=== PATIENT | male | born 1995 | race Hispanic/Latino ===

== ENCOUNTER 2020-08-19 15:54 | Inpatient (IN) | payer MEDICARE ==
[2020-08-19] MEDS: CEFTRIAXONE 1G VIAL IVP SCH
[2020-08-19] MEDS ORDERED: 0.9%NACL 1000ML 1,000 ML IV ONE (16:40)
[2020-08-19] MEDS ORDERED: ACETAMINOPHEN 325 MG TAB ONE (16:40)
[2020-08-19 16:51] LABS: BASOPHILS % (AUTO) 0.1 % (0.0-5.0); HEMATOCRIT 47.2 % (42-54); LYMPHOCYTES % (AUTO) 16.8 % (21.0-51.0); MEAN CORPUSCULAR HEMOGLOBIN 28.5 pg (27.0-33.0); MEAN CORPUSCULAR HGB CONC 33.5 g/dL (32.0-36.0); MONOCYTES % (AUTO) 7.2 % (3.0-13.0); NEUTROPHILS % (AUTO) 75.4 % (40.0-77.0); PLATELET COUNT (AUTO) 189 K/uL (130-400); RED BLOOD CELL COUNT(AUTO) 5.55 MIL/uL (4.50-6.20); RED CELL DISTRIBUTION WIDTH 11.9 % (11.0-15.5); WHITE BLOOD COUNT (AUTO) 7.8 K/uL (4.8-10.8)
[2020-08-19 16:52] LABS: APPEARANCE,URINE Clear (CLEAR); BILIRUBIN,URINE Negative (NEGATIVE); COLOR,URINE Yellow (YELLOW); GLUCOSE, URINE (UA) >=1000 mg/dL (NEGATIVE); KETONES,URINE >=160 mg/dL (NEGATIVE); LEUKOCYTE ESTERASE ,URINE Negative (NEGATIVE); NITRATE,URINE Negative (NEGATIVE); OCCULT BLOOD,URINE Small (NEGATIVE); PH,URINE 5.5 (5.0-8.0); PROTEIN,URINE POS 2+ mg/dL (NEGATIVE)
[2020-08-19 17:01] LABS: BACTERIA,URINE Rare /HPF (None Seen); CREATININE 1.7 mg/dL (0.5-1.5); POTASSIUM 4.3 mmol/L (3.5-5.1); RBC,URINE 0-1 /HPF (0-1); WBC,URINE 0-1 /HPF (0-1)
[2020-08-19 17:02] LABS: SQUAMOUS EPITHELIAL CELL,UR Rare /HPF (0-2)
[2020-08-19] MEDS ORDERED: ONDANSETRON 4MG INJ ONE ×2 (17:05→20:11)
[2020-08-19 17:06] LABS: ALBUMIN 3.7 g/dL (3.5-5.0); BILIRUBIN,TOTAL 0.6 mg/dL (0.2-1.0); TOTAL PROTEIN, SERUM 9.4 g/dL (6.0-8.3)
[2020-08-19 19:13] LABS: ABG BASE EXCESS -20.7 mmol/L (-2.0-3.0); ABG HCO3 5.9 mmol/L (21.0-28.0); ABG OXYGEN SATURATION 93.7 % (95.0-99.0); ABG PCO2 17 mmHg (35-48)
[2020-08-19] MEDS ORDERED: CEFTRIAXONE 1G VIAL ONE (20:04)
[2020-08-19] MEDS: ALOGRITHM #1 100 UNIT INSULIN/NS 100ML IV SCH ×2 (23:35)
[2020-08-20] VITALS (23 sets, daily range): BP systolic 99–133; BP diastolic 39–77
[2020-08-20] MEDS ORDERED: DEXTROSE 5%-WATER 1,000 ML IV ONE (03:10)
[2020-08-20] MEDS: ONDANSETRON 4MG INJ IVP PRN ×2 (05:38→16:35)
[2020-08-20 05:52] LABS: BASOPHILS % (AUTO) 0.2 % (0.0-5.0); EOSINOPHILS % (AUTO) 1.8 % (0.0-8.0); LYMPHOCYTES % (AUTO) 14.1 % (21.0-51.0); MEAN CORPUSCULAR HEMOGLOBIN 28.8 pg (27.0-33.0); MEAN CORPUSCULAR HGB CONC 33.4 g/dL (32.0-36.0); MEAN CORPUSCULAR VOLUME 86.1 fL (79-99); MONOCYTES % (AUTO) 6.6 % (3.0-13.0); NEUTROPHILS % (AUTO) 76.8 % (40.0-77.0); PLATELET COUNT (AUTO) 161 K/uL (130-400); RED BLOOD CELL COUNT(AUTO) 5.11 MIL/uL (4.50-6.20); RED CELL DISTRIBUTION WIDTH 12.2 % (11.0-15.5); WHITE BLOOD COUNT (AUTO) 6.5 K/uL (4.8-10.8)
[2020-08-20 06:12] LABS: CREATININE 1.4 mg/dL (0.5-1.5); POTASSIUM 3.7 mmol/L (3.5-5.1)
[2020-08-20] MEDS ORDERED: DEXTROSE 5 %-0.45 % NACL 1,000 ML IV PRN (08:15)
[2020-08-20] MEDS ORDERED: 0.9%NACL 1000ML 1,000 ML IV SCH ×2 (08:15→10:00)
[2020-08-20] MEDS: AZITHROMYCIN 500MG+NS 250ML 250 ML IV SCH (09:00)
[2020-08-20] MEDS ORDERED: 0.9%NACL 1000ML 1,000 ML IV ONE (09:09)
[2020-08-20 09:16] LABS: CREATININE 1.5 mg/dL (0.5-1.5)
[2020-08-20 11:03] LABS: PHOSPHORUS 1.4 mg/dL (2.5-4.9)
[2020-08-20 11:04] LABS: HEMOGLOBIN A1C 11.1 % (4.0-6.0)
[2020-08-20 14:02] LABS: CREATININE 1.5 mg/dL (0.5-1.5); POTASSIUM 3.5 mmol/L (3.5-5.1)
[2020-08-20] MEDS: DEXTROSE 5%-WATER 1,000 ML IV PRN ×2 (15:00→21:13)
[2020-08-20] MEDS: POTASSIUM PHOS 15 mMOL+NS250ML 250 ML IV PRN (16:37)
[2020-08-20 18:23] LABS: CREATININE 1.9 mg/dL (0.5-1.5); POTASSIUM 3.4 mmol/L (3.5-5.1)
[2020-08-20] MEDS: CEFTRIAXONE 1G VIAL IVP SCH (21:12)
[2020-08-20 22:15] LABS: CREATININE 1.4 mg/dL (0.5-1.5); POTASSIUM 3.1 mmol/L (3.5-5.1)
[2020-08-21] MEDS: POTASSIUM CHLORIDE 10MEQ/100ML 100 ML IV PRN ×2 (01:13→02:34)
[2020-08-21 06:17] LABS: HEMATOCRIT 35.7 % (42-54); LYMPHOCYTES % (AUTO) 14.5 % (21.0-51.0); MEAN CORPUSCULAR HEMOGLOBIN 28.2 pg (27.0-33.0); MEAN CORPUSCULAR HGB CONC 34.2 g/dL (32.0-36.0); MEAN CORPUSCULAR VOLUME 82.6 fL (79-99); MONOCYTES % (AUTO) 5.2 % (3.0-13.0); PLATELET COUNT (AUTO) 152 K/uL (130-400); RED BLOOD CELL COUNT(AUTO) 4.32 MIL/uL (4.50-6.20)
[2020-08-21 06:27] LABS: CREATININE 1.2 mg/dL (0.5-1.5); MAGNESIUM 1.9 mg/dL (1.80-2.40); PHOSPHORUS 1.2 mg/dL (2.5-4.9); POTASSIUM 3.2 mmol/L (3.5-5.1)
[2020-08-21 08:32] VITALS: BP 99/46
[2020-08-21] MEDS: AZITHROMYCIN 500MG+NS 250ML 250 ML IV SCH (08:44)
[2020-08-21 10:21] LABS: CREATININE 1.3 mg/dL (0.5-1.5)
[2020-08-21 10:24] LABS: POTASSIUM 2.8 mmol/L (3.5-5.1)
[2020-08-21] MEDS: POTASSIUM PHOS 15 mMOL+NS250ML 250 ML IV PRN (10:35)
[2020-08-21] MEDS: ALOGRITHM #1 100 UNIT INSULIN/NS 100ML IV SCH ×2 (11:21)
[2020-08-21] MEDS ORDERED: D5 NS WITH 20 mEq KCl 1000ML IV SCH (14:00)
[2020-08-21] MEDS ORDERED: D5W-1/2 NS/20MEQ KCL 1,000 ML IV SCH (14:30)
[2020-08-21] MEDS ORDERED: COMPOUND IV REFRIGERATED 1 EACH IVSOLN MISC PRN (14:45)
[2020-08-21] MEDS: DEXTROSE IV SCH ×2 (15:27→23:00)
[2020-08-21] MEDS: POTASSIUM CHLORIDE IV SCH ×2 (15:27→23:00)
[2020-08-21] MEDS: NACL IV SCH ×2 (15:27→23:00)
[2020-08-21 16:47] VITALS: BP 106/51
[2020-08-21] MEDS: CEFTRIAXONE 1G VIAL IVP SCH (18:02)
[2020-08-21 19:28] VITALS: BP 91/53
[2020-08-22 02:00] VITALS: BP 106/66
[2020-08-22 02:02] VITALS: BP 108/62
[2020-08-22 05:39] LABS: BASOPHILS % (AUTO) 0.2 % (0.0-5.0); EOSINOPHILS % (AUTO) 0.2 % (0.0-8.0); HEMATOCRIT 34.3 % (42-54); LYMPHOCYTES % (AUTO) 21.6 % (21.0-51.0); MEAN CORPUSCULAR HEMOGLOBIN 28.5 pg (27.0-33.0); MEAN CORPUSCULAR VOLUME 81.5 fL (79-99); MONOCYTES % (AUTO) 5.7 % (3.0-13.0); NEUTROPHILS % (AUTO) 71.5 % (40.0-77.0); PLATELET COUNT (AUTO) 159 K/uL (130-400); RED BLOOD CELL COUNT(AUTO) 4.21 MIL/uL (4.50-6.20); RED CELL DISTRIBUTION WIDTH 11.9 % (11.0-15.5); WHITE BLOOD COUNT (AUTO) 5.1 K/uL (4.8-10.8)
[2020-08-22 05:42] LABS: CREATININE 1.1 mg/dL (0.5-1.5)
[2020-08-22] MEDS: DEXTROSE IV SCH (06:13)
[2020-08-22] MEDS: POTASSIUM CHLORIDE IV SCH (06:13)
[2020-08-22] MEDS: NACL IV SCH (06:13)
[2020-08-22 06:14] LABS: POTASSIUM 2.9 mmol/L (3.5-5.1)
[2020-08-22] MEDS: AZITHROMYCIN 500MG+NS 250ML 250 ML IV SCH (09:14)
[2020-08-22 09:32] VITALS: BP 108/58
[2020-08-22 12:20] VITALS: BP 96/52
[2020-08-22] MEDS: ENOXAPARIN SODIUM 40 MG/0.4 ML SYRINGE SQ SCH (12:58)
[2020-08-22] MEDS ORDERED: PANTOPRAZOLE 40 MG TAB DR PO SCH (13:45)
[2020-08-22] MEDS ORDERED: SODIUM BICARBONATE 650 MG TAB PO SCH (13:45)
[2020-08-22] MEDS ORDERED: POTASSIUM CHLORIDE 20 MEQ/100 ML BAG IV SCH (14:00)
[2020-08-22] MEDS: POTASSIUM CHLORIDE 20MEQ/100ML 100 ML IV SCH ×2 (14:11→15:54)
[2020-08-22] MEDS: SODIUM BICARBONATE 650 MG TAB PO SCH ×2 (14:11→21:53)
[2020-08-22] MEDS: 1/2NS+20MEQ KCL/1000ML 1,000 ML IV SCH (17:00)
[2020-08-22] MEDS: INSULIN HUMULIN R 100 UNIT/ML 3ML SQ SCH ×2 (17:00→21:48)
[2020-08-22] MEDS: CEFTRIAXONE 1G VIAL IVP SCH (18:10)
[2020-08-22] MEDS: INSULIN GLARGINE 100 UNITS/ML 10 ML VIAL SQ SCH (21:49)
[2020-08-22 22:00] VITALS: BP 105/69
[2020-08-23] MEDS: 1/2NS+20MEQ KCL/1000ML 1,000 ML IV SCH ×2 (01:20→14:40)
[2020-08-23 04:26] LABS: MEAN CORPUSCULAR HEMOGLOBIN 28.2 pg (27.0-33.0); MEAN CORPUSCULAR HGB CONC 34.9 g/dL (32.0-36.0); MEAN CORPUSCULAR VOLUME 80.8 fL (79-99); PLATELET COUNT (AUTO) 199 K/uL (130-400); RED BLOOD CELL COUNT(AUTO) 4.33 MIL/uL (4.50-6.20); RED CELL DISTRIBUTION WIDTH 11.8 % (11.0-15.5); WHITE BLOOD COUNT (AUTO) 5.2 K/uL (4.8-10.8)
[2020-08-23 04:31] LABS: CREATININE 1.2 mg/dL (0.5-1.5); PHOSPHORUS 2.5 mg/dL (2.5-4.9)
[2020-08-23 04:35] LABS: POTASSIUM 2.9 mmol/L (3.5-5.1)
[2020-08-23 04:47] LABS: BAND NEUTROPHILS % (MANUAL) 4 % (0-2); LYMPHOCYTES % (MANUAL) 26 % (22-44); MAN.DIFF COMMENT-IMPRESSION MANUAL DIFFERENTIAL; MONOCYTES % (MANUAL) 5 % (2-9); SEGMENTED NEUTROPHILS % 65 % (40-70)
[2020-08-23 04:48] LABS: PLATELET MORPHOLOGY COMMENT SLIGHTLY DECREASED
[2020-08-23] MEDS ORDERED: POTASSIUM BICARB/CIT AC 25 MEQ TABLET.EFF PO SCH ×2 (05:00→07:00)
[2020-08-23] MEDS ORDERED: KCL 20 MEQ ERTAB PO SCH ×2 (05:15→06:50)
[2020-08-23] MEDS ORDERED: KCL 20 MEQ ERTAB PO ONE (05:31)
[2020-08-23 05:52] VITALS: BP 101/60
[2020-08-23] MEDS: INSULIN HUMULIN R 100 UNIT/ML 3ML SQ SCH ×4 (06:55→21:00)
[2020-08-23] MEDS: INSULIN GLARGINE 100 UNITS/ML 10 ML VIAL SQ SCH ×2 (06:56→21:48)
[2020-08-23 08:00] VITALS: BP 112/58
[2020-08-23] MEDS: PANTOPRAZOLE 40 MG TAB DR PO SCH (08:46)
[2020-08-23] MEDS: ENOXAPARIN SODIUM 40 MG/0.4 ML SYRINGE SQ SCH ×2 (08:46→12:00)
[2020-08-23] MEDS: SODIUM BICARBONATE 650 MG TAB PO SCH ×2 (08:46→21:46)
[2020-08-23] MEDS: AZITHROMYCIN 500MG+NS 250ML 250 ML IV SCH (08:46)
[2020-08-23 12:15] VITALS: BP 117/82
[2020-08-23] MEDS: CEFTRIAXONE 1G VIAL IVP SCH (19:00)
[2020-08-23 21:32] VITALS: BP 106/66
[2020-08-24 03:12] LABS: AMPHET/METH SCREEN,URINE NEGATIVE (NEGATIVE); BARBITURATE SCREEN, URINE NEGATIVE (NEGATIVE); BENZODIAZEPINES SCREEN,URINE NEGATIVE (NEGATIVE); CANNABINOID SCREEN,URINE NEGATIVE (NEGATIVE); COCAINE SCREEN,URINE NEGATIVE (NEGATIVE); OPIATE SCREEN,URINE NEGATIVE (NEGATIVE); PHENCYCLIDINE SCREEN,URINE NEGATIVE (NEGATIVE)
[2020-08-24] MEDS: 1/2NS+20MEQ KCL/1000ML 1,000 ML IV SCH (03:57)
[2020-08-24 04:07] LABS: HEMATOCRIT 33.9 % (42-54); MEAN CORPUSCULAR HEMOGLOBIN 28.6 pg (27.0-33.0); MEAN CORPUSCULAR HGB CONC 35.4 g/dL (32.0-36.0); MEAN CORPUSCULAR VOLUME 80.9 fL (79-99); PLATELET COUNT (AUTO) 254 K/uL (130-400); RED BLOOD CELL COUNT(AUTO) 4.19 MIL/uL (4.50-6.20); RED CELL DISTRIBUTION WIDTH 11.8 % (11.0-15.5); WHITE BLOOD COUNT (AUTO) 5.2 K/uL (4.8-10.8)
[2020-08-24 05:03] LABS: POTASSIUM 2.7 mmol/L (3.5-5.1)
[2020-08-24 05:04] LABS: BAND NEUTROPHILS % (MANUAL) 5 % (0-2); EOSINOPHILS % (MANUAL) 2 % (1-6); LYMPHOCYTES % (MANUAL) 28 % (22-44); MAN.DIFF COMMENT-IMPRESSION MANUAL DIFFERENTIAL; MONOCYTES % (MANUAL) 5 % (2-9); PLATELET MORPHOLOGY COMMENT ADEQUATE; SEGMENTED NEUTROPHILS % 60 % (40-70)
[2020-08-24] MEDS: INSULIN HUMULIN R 100 UNIT/ML 3ML SQ SCH ×4 (07:00→21:21)
[2020-08-24] MEDS: INSULIN GLARGINE 100 UNITS/ML 10 ML VIAL SQ SCH ×2 (07:15→21:20)
[2020-08-24] MEDS: AZITHROMYCIN 500MG+NS 250ML 250 ML IV SCH (08:28)
[2020-08-24] MEDS: SODIUM BICARBONATE 650 MG TAB PO SCH ×2 (08:32→21:12)
[2020-08-24] MEDS: PANTOPRAZOLE 40 MG TAB DR PO SCH (08:32)
[2020-08-24] MEDS: ENOXAPARIN SODIUM 40 MG/0.4 ML SYRINGE SQ SCH ×2 (08:33→10:46)
[2020-08-24 08:37] VITALS: BP 113/67
[2020-08-24] MEDS ORDERED: KCL 20 MEQ ERTAB PO PRN ×2 (10:45→12:15)
[2020-08-24] MEDS ORDERED: LIDOCAINE HCL-MPF 1% 2ML VIAL IJ PRN (12:15)
[2020-08-24] MEDS ORDERED: POTASSIUM CHLORIDE 20MEQ/100ML 100 ML IV PRN (12:15)
[2020-08-24 13:13] VITALS: BP 98/59
[2020-08-24 16:50] VITALS: BP 118/63
[2020-08-24 17:49] LABS: CREATININE 0.9 mg/dL (0.5-1.5)
[2020-08-24 17:57] LABS: POTASSIUM 2.9 mmol/L (3.5-5.1)
[2020-08-24 19:27] VITALS: BP 123/77
[2020-08-24] MEDS: POTASSIUM CHLORIDE 10% ELIXIR 20 MEQ/15 ML UDCUP PO PRN ×2 (19:42→21:11)
[2020-08-24] MEDS: CEFTRIAXONE 1G VIAL IVP SCH (21:10)
[2020-08-24 21:34] LABS: CREATININE 0.9 mg/dL (0.5-1.5); POTASSIUM 3.1 mmol/L (3.5-5.1)
[2020-08-24 23:58] VITALS: BP 119/78
[2020-08-25 03:35] VITALS: BP 112/71
[2020-08-25 05:13] LABS: BASOPHILS % (AUTO) 0.7 % (0.0-5.0); EOSINOPHILS % (AUTO) 1.6 % (0.0-8.0); HEMATOCRIT 36.2 % (42-54); LYMPHOCYTES % (AUTO) 36.3 % (21.0-51.0); MEAN CORPUSCULAR HGB CONC 34.5 g/dL (32.0-36.0); MEAN CORPUSCULAR VOLUME 81.2 fL (79-99); NEUTROPHILS % (AUTO) 48.3 % (40.0-77.0); PLATELET COUNT (AUTO) 291 K/uL (130-400); RED BLOOD CELL COUNT(AUTO) 4.46 MIL/uL (4.50-6.20); RED CELL DISTRIBUTION WIDTH 11.7 % (11.0-15.5); WHITE BLOOD COUNT (AUTO) 4.4 K/uL (4.8-10.8)
[2020-08-25 05:25] LABS: CREATININE 0.9 mg/dL (0.5-1.5); MAGNESIUM 2.1 mg/dL (1.80-2.40)
[2020-08-25 05:51] LABS: POTASSIUM 2.9 mmol/L (3.5-5.1)
[2020-08-25] MEDS: POTASSIUM CHLORIDE 10% ELIXIR 20 MEQ/15 ML UDCUP PO PRN ×3 (05:58→08:52)
[2020-08-25] MEDS: INSULIN HUMULIN R 100 UNIT/ML 3ML SQ SCH ×3 (05:59→15:55)
[2020-08-25] MEDS: INSULIN GLARGINE 100 UNITS/ML 10 ML VIAL SQ SCH (07:22)
[2020-08-25] MEDS: AZITHROMYCIN 500MG+NS 250ML 250 ML IV SCH (08:15)
[2020-08-25] MEDS: ENOXAPARIN SODIUM 40 MG/0.4 ML SYRINGE SQ SCH (08:16)
[2020-08-25] MEDS: SODIUM BICARBONATE 650 MG TAB PO SCH (08:16)
[2020-08-25] MEDS: PANTOPRAZOLE 40 MG TAB DR PO SCH (08:16)
[2020-08-25 08:26] VITALS: BP 101/68
[2020-08-25 12:09] VITALS: BP 111/69
[2020-08-25 12:27] LABS: ALBUMIN 2.2 g/dL (3.5-5.0); BILIRUBIN,TOTAL 0.4 mg/dL (0.2-1.0); CREATININE 0.9 mg/dL (0.5-1.5); POTASSIUM 3.5 mmol/L (3.5-5.1)
[2020-08-25] MEDS ORDERED: INSLAN SQ (13:14)
[2020-08-25 16:22] VITALS: BP 124/54
== END 2020-08-25 16:40 | disposition home or self-care (01) | DRG 177 ==
LOC: EDH 15:54 → EDHIP 18:25 → 2BH 21:37 → 2DH 08-24 04:30
PROVIDERS: ADMIT Internal Medicine Nephrology; ATTEND Internal Medicine Nephrology
DX: U07.1 COVID-19 (principal); E11.10 Type 2 diabetes mellitus with ketoacidosis without coma; J12.82 Pneumonia due to coronavirus disease 2019; E87.1 Hypo-osmolality and hyponatremia; N17.9 Acute kidney failure, unspecified; E87.6 Hypokalemia; D64.9 Anemia, unspecified; E83.39 Other disorders of phosphorus metabolism; I10 Essential (primary) hypertension; E86.0 Dehydration; Z91.19 Patient's noncompliance with other medical treatment and regimen; Z87.442 Personal history of urinary calculi; Z79.4 Long term (current) use of insulin; Z88.8 Allergy status to other drugs, medicaments and biological substances
CPT/HCPCS: 36415; 36600; 71045; 80048; 80053; 80305; 81001; 82010; 82150; 82803; 82948; 83036; 83605; 83690; 83735; 83930; 84100; 85025; 87040; 87426; 87880; G0378; J0456; J0696; J1650; J1815; J2405; J3480; J3490; J7030; J7042; J7070

== ENCOUNTER 2021-04-16 11:03 | Inpatient (IN) | payer OTHER, MEDICARE ==
[~2021-04-16] VITALS: Ht 167.6 cm; Wt 84.0 kg
[~2021-04-16 11:03] MED LIST: INSLAN SQ
[2021-04-16 11:36] LABS: CREATININE 1.3 mg/dL (0.5-1.5)
[2021-04-16 11:41] LABS: ALBUMIN 3.8 g/dL (3.5-5.0); BILIRUBIN,TOTAL 0.7 mg/dL (0.2-1.0); TOTAL PROTEIN, SERUM 9.3 g/dL (6.0-8.3)
[2021-04-16 11:45] LABS: BASOPHILS % (AUTO) 0.3 % (0.0-5.0); EOSINOPHILS % (AUTO) 0.1 % (0.0-8.0); HEMATOCRIT 47.4 % (42-54); LYMPHOCYTES % (AUTO) 11.4 % (21.0-51.0); MEAN CORPUSCULAR HEMOGLOBIN 29.7 pg (27.0-33.0); MEAN CORPUSCULAR HGB CONC 33.8 g/dL (32.0-36.0); MEAN CORPUSCULAR VOLUME 87.9 fL (79-99); NEUTROPHILS % (AUTO) 80.5 % (40.0-77.0); PLATELET COUNT (AUTO) 226 K/uL (130-400); RED BLOOD CELL COUNT(AUTO) 5.39 MIL/uL (4.50-6.20); RED CELL DISTRIBUTION WIDTH 12.4 % (11.0-15.5)
[2021-04-16] MEDS ORDERED: LIDOCAINE HCL 400MG/20ML VIAL ONE (12:14)
[2021-04-16] MEDS ORDERED: LIDOCAINE 2%-EPI 1:200,000 20 ML VIAL IJ SCH (12:30)
[2021-04-16 13:08] LABS: ABG HCO3 5.7 mmol/L (21.0-28.0); ABG OXYGEN SATURATION 96.8 % (95.0-99.0); ABG PCO2 17 mmHg (35-48)
[2021-04-16] MEDS: 0.9%NACL 1000ML 1,000 ML IV SCH ×2 (13:22→16:31)
[2021-04-16] MEDS: LEVOFLOXACIN 500 MG/D5W 100 ML 100 ML IV SCH (13:45)
[2021-04-16 14:14] LABS: APPEARANCE,URINE Clear (CLEAR); BILIRUBIN,URINE Negative (NEGATIVE); COLOR,URINE Yellow (YELLOW); GLUCOSE, URINE (UA) >=1000 mg/dL (NEGATIVE); KETONES,URINE >=160 mg/dL (NEGATIVE); LEUKOCYTE ESTERASE ,URINE Negative (NEGATIVE); NITRATE,URINE Negative (NEGATIVE); OCCULT BLOOD,URINE Trace (NEGATIVE); PROTEIN,URINE POS 1+ mg/dL (NEGATIVE)
[2021-04-16] MEDS ORDERED: 0.9%NACL 100ML 100 ML ONE (14:28)
[2021-04-16] MEDS ORDERED: INSULIN HUMULIN R 100 UNIT/ML 3ML ONE (14:30)
[2021-04-16 14:40] LABS: BACTERIA,URINE None Seen /HPF (None Seen); MUCUS,URINE Few LPF (None Seen); RBC,URINE 0-1 /HPF (0-1); SQUAMOUS EPITHELIAL CELL,UR Few /HPF (0-2); WBC,URINE 0-1 /HPF (0-1)
[2021-04-16] MEDS ORDERED: ZOSYN 3.375GM+NS 50ML 50 ML IV SCH (16:30)
[2021-04-16] MEDS ORDERED: DEXTROSE 5%-WATER 1,000 ML IV PRN (16:30)
[2021-04-16] MEDS ORDERED: PANTOPRAZOLE 40 MG/VIAL IVP SCH (16:30)
[2021-04-16] MEDS ORDERED: TRAMADOL HCL 50 MG TABLET PO PRN (16:30)
[2021-04-16] MEDS ORDERED: INSULIN REGULAR HUMAN 100 UNIT /NS 100ML IV SCH ×2 (16:30)
[2021-04-16] MEDS ORDERED: 0.9%NACL 50ML 50 ML IV ONE (16:35)
[2021-04-16] MEDS: VANCOMYCIN 1.25GM/NS 250ML IVPB SCH ×2 (17:06)
[2021-04-16] MEDS: ACETAMINOPHEN 325 MG TAB PO PRN (20:35)
[2021-04-16] MEDS: ZOSYN 3.375GM+NS 50ML 50 ML IV SCH (22:24)
[2021-04-17] MEDS: 0.9%NACL 1000ML 1,000 ML IV SCH ×3 (02:41→12:30)
[2021-04-17] MEDS ORDERED: OXCA600T3 PO (03:05)
[2021-04-17] MEDS: VANCOMYCIN KIT 1 GM/250 ML IV.KIT IV SCH ×2 (05:36→18:00)
[2021-04-17] MEDS: 0.9% NACL 250ML 250 ML IV SCH ×2 (05:36→22:08)
[2021-04-17 06:45] LABS: BASOPHILS % (AUTO) 0.2 % (0.0-5.0); EOSINOPHILS % (AUTO) 0.6 % (0.0-8.0); HEMATOCRIT 41.5 % (42-54); LYMPHOCYTES % (AUTO) 14.5 % (21.0-51.0); MEAN CORPUSCULAR HEMOGLOBIN 29.4 pg (27.0-33.0); MEAN CORPUSCULAR HGB CONC 33.7 g/dL (32.0-36.0); MEAN CORPUSCULAR VOLUME 87.2 fL (79-99); MONOCYTES % (AUTO) 8.1 % (3.0-13.0); PLATELET COUNT (AUTO) 196 K/uL (130-400); RED BLOOD CELL COUNT(AUTO) 4.76 MIL/uL (4.50-6.20); RED CELL DISTRIBUTION WIDTH 12.4 % (11.0-15.5); WHITE BLOOD COUNT (AUTO) 12.2 K/uL (4.8-10.8)
[2021-04-17] MEDS: ZOSYN 3.375GM+NS 50ML 50 ML IV SCH ×3 (07:00→22:08)
[2021-04-17 07:22] LABS: ALBUMIN 3.2 g/dL (3.5-5.0); BILIRUBIN,TOTAL 0.7 mg/dL (0.2-1.0); CREATININE 1.1 mg/dL (0.5-1.5); POTASSIUM 3.4 mmol/L (3.5-5.1); THYROID STIMULATING HORMONE 1.15 uIU/mL (0.36-3.74)
[2021-04-17 07:38] LABS: ABG BASE EXCESS -12.8 mmol/L (-2.0-3.0); ABG HCO3 11.8 mmol/L (21.0-28.0); ABG OXYGEN SATURATION 97.5 % (95.0-99.0); ABG PCO2 25 mmHg (35-48)
[2021-04-17] MEDS: PANTOPRAZOLE 40 MG/VIAL IVP SCH (09:37)
[2021-04-17] MEDS: ACETAMINOPHEN 325 MG TAB PO PRN (09:38)
[2021-04-17] MEDS: LEVOFLOXACIN 500 MG/D5W 100 ML 100 ML IV SCH (12:46)
[2021-04-17 13:25] LABS: CREATININE 1.1 mg/dL (0.5-1.5)
[2021-04-17] MEDS ORDERED: INSULIN GLARGINE 100 UNITS/ML 10 ML VIAL SQ SCH (15:00)
[2021-04-17] MEDS ORDERED: POTASSIUM CHLORIDE 10% ELIXIR 20 MEQ/15 ML UDCUP ONE (15:01)
[2021-04-17] MEDS: VANCOMYCIN 1.25GM/NS 250ML IVPB SCH ×4 (16:00→19:24)
[2021-04-17] MEDS ORDERED: 0.9%NACL 100ML 100 ML ONE ×2 (16:10→21:40)
[2021-04-17] MEDS: WATER IV SCH (17:00)
[2021-04-17] MEDS: POTASSIUM CHLORIDE IV SCH (17:00)
[2021-04-17] MEDS: DEXTROSE 5% IV SCH (17:00)
[2021-04-17 18:45] LABS: CREATININE 1.2 mg/dL (0.5-1.5); POTASSIUM 3.6 mmol/L (3.5-5.1)
[2021-04-17 18:50] LABS: BILIRUBIN,TOTAL 0.7 mg/dL (0.2-1.0); TOTAL PROTEIN, SERUM 7.6 g/dL (6.0-8.3)
[2021-04-17] MEDS ORDERED: INSULIN HUMULIN R 100 UNIT/ML 3ML ONE (21:41)
[2021-04-17 22:39] LABS: CREATININE 1.1 mg/dL (0.5-1.5); MAGNESIUM 1.8 mg/dL (1.80-2.40); POTASSIUM 3.3 mmol/L (3.5-5.1)
[2021-04-18] MEDS ORDERED: POTASSIUM CHLORIDE 20MEQ/100ML 200 ML IV ONE (04:01)
[2021-04-18] MEDS: POTASSIUM CHLORIDE IV SCH ×3 (04:17→20:53)
[2021-04-18] MEDS: WATER IV SCH ×3 (04:17→20:53)
[2021-04-18] MEDS: DEXTROSE 5% IV SCH ×3 (04:17→20:53)
[2021-04-18 05:50] LABS: BASOPHILS % (AUTO) 0.1 % (0.0-5.0); EOSINOPHILS % (AUTO) 0.6 % (0.0-8.0); HEMATOCRIT 37.8 % (42-54); LYMPHOCYTES % (AUTO) 19.5 % (21.0-51.0); MEAN CORPUSCULAR HEMOGLOBIN 29.4 pg (27.0-33.0); MEAN CORPUSCULAR HGB CONC 34.1 g/dL (32.0-36.0); MEAN CORPUSCULAR VOLUME 86.1 fL (79-99); NEUTROPHILS % (AUTO) 70.2 % (40.0-77.0); PLATELET COUNT (AUTO) 207 K/uL (130-400); RED BLOOD CELL COUNT(AUTO) 4.39 MIL/uL (4.50-6.20); RED CELL DISTRIBUTION WIDTH 12.2 % (11.0-15.5); WHITE BLOOD COUNT (AUTO) 8.8 K/uL (4.8-10.8)
[2021-04-18 06:05] LABS: CREATININE 1.2 mg/dL (0.5-1.5); POTASSIUM 3.2 mmol/L (3.5-5.1)
[2021-04-18 06:08] LABS: ALBUMIN 2.8 g/dL (3.5-5.0); BILIRUBIN,TOTAL 0.7 mg/dL (0.2-1.0); MAGNESIUM 1.9 mg/dL (1.80-2.40); TOTAL PROTEIN, SERUM 7.3 g/dL (6.0-8.3)
[2021-04-18] MEDS: ZOSYN 3.375GM+NS 50ML 50 ML IV SCH ×3 (08:00→21:00)
[2021-04-18] MEDS: 0.9%NACL 1000ML 1,000 ML IV SCH ×3 (08:30→20:53)
[2021-04-18] MEDS: PANTOPRAZOLE 40 MG/VIAL IVP SCH (09:00)
[2021-04-18] MEDS: VANCOMYCIN KIT 1 GM/250 ML IV.KIT IV SCH ×2 (12:00→22:23)
[2021-04-18] MEDS: LEVOFLOXACIN 500 MG/D5W 100 ML 100 ML IV SCH (16:42)
[2021-04-18 22:04] LABS: MAGNESIUM 1.7 mg/dL (1.80-2.40); POTASSIUM 3.2 mmol/L (3.5-5.1)
[2021-04-18] MEDS ORDERED: VANCOMYCIN 500 MG IV ONE (22:18)
[2021-04-18] MEDS ORDERED: [UNRECOGNIZED DRUG - OTHER] IV ONE (22:18)
[2021-04-18] MEDS: 0.9% NACL 250ML 250 ML IV SCH (22:23)
[2021-04-19 02:34] LABS: MAGNESIUM 1.7 mg/dL (1.80-2.40); POTASSIUM 3.2 mmol/L (3.5-5.1)
[2021-04-19] MEDS: ZOSYN 3.375GM+NS 50ML 50 ML IV SCH ×3 (05:13→20:38)
[2021-04-19] MEDS ORDERED: MAGNESIUM 2GM PREMIX 50ML 50 ML IV SCH (05:30)
[2021-04-19] MEDS: VANCOMYCIN KIT 1 GM/250 ML IV.KIT IV SCH (06:00)
[2021-04-19] MEDS ORDERED: INSULIN HUMULIN R 100 UNIT/ML 3ML ONE (06:06)
[2021-04-19] MEDS: 0.9%NACL 1000ML 1,000 ML IV SCH ×2 (06:26→14:30)
[2021-04-19] MEDS: POTASSIUM CHLORIDE IV SCH ×2 (07:48→20:38)
[2021-04-19] MEDS: DEXTROSE 5% IV SCH ×2 (07:48→20:38)
[2021-04-19] MEDS: WATER IV SCH ×2 (07:48→20:38)
[2021-04-19] MEDS: PANTOPRAZOLE 40 MG/VIAL IVP SCH (10:01)
[2021-04-19 10:16] LABS: CREATININE 1.1 mg/dL (0.5-1.5); POTASSIUM 3.1 mmol/L (3.5-5.1)
[2021-04-19] MEDS: 0.9% NACL 250ML 250 ML IV SCH (12:11)
[2021-04-19] MEDS: LEVOFLOXACIN 500 MG/D5W 100 ML 100 ML IV SCH (12:45)
[2021-04-19 13:58] LABS: POTASSIUM 3.1 mmol/L (3.5-5.1)
[2021-04-19 17:36] LABS: POTASSIUM 3.3 mmol/L (3.5-5.1)
[2021-04-19] MEDS ORDERED: 0.9%NACL 50ML 50 ML IV ONE (20:37)
[2021-04-19] MEDS: OXCARBAZEPINE PO SCH (20:38)
[2021-04-19 21:10] LABS: CREATININE 1.3 mg/dL (0.5-1.5); POTASSIUM 3.2 mmol/L (3.5-5.1)
[2021-04-19 23:30] VITALS: BP 118/75
[2021-04-20] VITALS (14 sets, daily range): BP systolic 120–131; BP diastolic 51–84
[2021-04-20] MEDS: 0.9%NACL 1000ML 1,000 ML IV SCH ×2 (00:23→09:08)
[2021-04-20 02:25] LABS: ALBUMIN 2.8 g/dL (3.5-5.0); BILIRUBIN,TOTAL 0.4 mg/dL (0.2-1.0); CREATININE 1.1 mg/dL (0.5-1.5); POTASSIUM 3.3 mmol/L (3.5-5.1); TOTAL PROTEIN, SERUM 7.2 g/dL (6.0-8.3)
[2021-04-20] MEDS ORDERED: 0.9%NACL 50ML 50 ML IV ONE ×2 (05:26→20:43)
[2021-04-20] MEDS: VANCOMYCIN KIT 1 GM/250 ML IV.KIT IV SCH ×2 (05:28→05:30)
[2021-04-20] MEDS: ZOSYN 3.375GM+NS 50ML 50 ML IV SCH ×3 (05:29→20:49)
[2021-04-20] MEDS: 0.9% NACL 250ML 250 ML IV SCH ×2 (05:29→05:30)
[2021-04-20 06:25] LABS: BASOPHILS % (AUTO) 0.3 % (0.0-5.0); EOSINOPHILS % (AUTO) 0.8 % (0.0-8.0); HEMATOCRIT 36.5 % (42-54); LYMPHOCYTES % (AUTO) 32.8 % (21.0-51.0); MEAN CORPUSCULAR HEMOGLOBIN 29.3 pg (27.0-33.0); MEAN CORPUSCULAR HGB CONC 34.8 g/dL (32.0-36.0); MEAN CORPUSCULAR VOLUME 84.1 fL (79-99); MONOCYTES % (AUTO) 8.8 % (3.0-13.0); NEUTROPHILS % (AUTO) 56.9 % (40.0-77.0); PLATELET COUNT (AUTO) 224 K/uL (130-400); RED BLOOD CELL COUNT(AUTO) 4.34 MIL/uL (4.50-6.20); RED CELL DISTRIBUTION WIDTH 11.9 % (11.0-15.5); WHITE BLOOD COUNT (AUTO) 7.1 K/uL (4.8-10.8)
[2021-04-20 06:36] LABS: POTASSIUM 3.1 mmol/L (3.5-5.1)
[2021-04-20 08:26] LABS: HEMOGLOBIN A1C 10.4 % (4.0-6.0)
[2021-04-20] MEDS ORDERED: LEVOFLOXACIN 500 MG/D5W 100 ML 100 ML ONE (08:31)
[2021-04-20] MEDS: OXCARBAZEPINE PO SCH ×2 (08:38→20:21)
[2021-04-20] MEDS: PANTOPRAZOLE 40 MG/VIAL IVP SCH (08:38)
[2021-04-20] MEDS: LEVOFLOXACIN 500 MG/D5W 100 ML 100 ML IV SCH (08:58)
[2021-04-20] MEDS: POTASSIUM CHLORIDE IV SCH (08:58)
[2021-04-20] MEDS: DEXTROSE 5% IV SCH (08:58)
[2021-04-20] MEDS: WATER IV SCH (08:58)
[2021-04-20] MEDS ORDERED: DEXTROSE 50%-WATER 50 ML DISP.SYRIN IV PRN ×2 (13:00→16:30)
[2021-04-20] MEDS ORDERED: GLUCAGON 1MG KIT 1 MG ML IM PRN ×2 (13:00→16:30)
[2021-04-20] MEDS ORDERED: POTASSIUM CHLORIDE 20MEQ/100ML 100 ML IV PRN (13:30)
[2021-04-20] MEDS ORDERED: POTASSIUM CHLORIDE 10% ELIXIR 20 MEQ/15 ML UDCUP PO PRN ×2 (13:30→16:00)
[2021-04-20] MEDS ORDERED: KCL 20 MEQ ERTAB PO PRN (13:30)
[2021-04-20] MEDS ORDERED: LIDOCAINE HCL-MPF 1% 2ML VIAL IV PRN (13:30)
[2021-04-20] MEDS ORDERED: COMPOUND IV REFRIGERATED 1 EACH IVSOLN MISC PRN (14:30)
[2021-04-20] MEDS ORDERED: KCL 20 MEQ ERTAB PO ONE (16:02)
[2021-04-20] MEDS: KCL 20 MEQ ERTAB PO PRN ×2 (16:26→18:42)
[2021-04-20] MEDS ORDERED: INSULIN HUMULIN R 100 UNIT/ML 3ML SQ SCH (16:30)
[2021-04-20] MEDS: INSULIN HUMULIN R 100 UNIT/ML 3ML SQ SCH ×2 (16:33→20:20)
[2021-04-20] MEDS: VANCOMYCIN 1.25GM/NS 250ML IVPB SCH ×2 (18:06)
[2021-04-20] MEDS ORDERED: INSULIN GLARGINE 100 UNITS/ML 10 ML VIAL SQ SCH (21:00)
[2021-04-21 00:01] VITALS: BP 128/60
[2021-04-21 04:00] VITALS: BP 120/79
[2021-04-21] MEDS: ZOSYN 3.375GM+NS 50ML 50 ML IV SCH ×3 (04:19→20:47)
[2021-04-21 05:02] LABS: HEMATOCRIT 36.7 % (42-54); MEAN CORPUSCULAR HEMOGLOBIN 29.7 pg (27.0-33.0); MEAN CORPUSCULAR HGB CONC 35.4 g/dL (32.0-36.0); MEAN CORPUSCULAR VOLUME 83.8 fL (79-99); RED BLOOD CELL COUNT(AUTO) 4.38 MIL/uL (4.50-6.20); RED CELL DISTRIBUTION WIDTH 11.9 % (11.0-15.5); WHITE BLOOD COUNT (AUTO) 7.2 K/uL (4.8-10.8)
[2021-04-21 05:15] LABS: MAGNESIUM 1.8 mg/dL (1.80-2.40); PHOSPHORUS 4.2 mg/dL (2.5-4.9); POTASSIUM 3.6 mmol/L (3.5-5.1)
[2021-04-21] MEDS: VANCOMYCIN 1.25GM/NS 250ML IVPB SCH ×2 (05:20)
[2021-04-21] MEDS: INSULIN HUMULIN R 100 UNIT/ML 3ML SQ SCH ×4 (05:42→20:55)
[2021-04-21 08:00] VITALS: BP 108/72
[2021-04-21] MEDS: PANTOPRAZOLE 40 MG/VIAL IVP SCH (08:48)
[2021-04-21] MEDS: LEVOFLOXACIN 500 MG/D5W 100 ML 100 ML IV SCH (08:48)
[2021-04-21] MEDS: OXCARBAZEPINE PO SCH ×2 (08:49→21:00)
[2021-04-21 11:55] VITALS: BP 110/65
[2021-04-21 16:00] VITALS: BP 117/77
[2021-04-21 20:00] VITALS: BP_SYST 115; BP_SYST 94; BP_DIAS 51; BP_DIAS 67
[2021-04-21] MEDS: VANCOMYCIN 1.5GM/NS 250ML IV SCH ×2 (20:48)
[2021-04-22] VITALS: BP 121/71
[2021-04-22 04:00] VITALS: BP 107/73
[2021-04-22] MEDS: ZOSYN 3.375GM+NS 50ML 50 ML IV SCH ×3 (04:53→21:07)
[2021-04-22] MEDS: VANCOMYCIN 1.5GM/NS 250ML IV SCH ×6 (04:53→19:25)
[2021-04-22 05:10] LABS: BASOPHILS % (AUTO) 0.4 % (0.0-5.0); EOSINOPHILS % (AUTO) 1.1 % (0.0-8.0); HEMATOCRIT 34.5 % (42-54); LYMPHOCYTES % (AUTO) 39.2 % (21.0-51.0); MEAN CORPUSCULAR HGB CONC 34.2 g/dL (32.0-36.0); MEAN CORPUSCULAR VOLUME 84.8 fL (79-99); MONOCYTES % (AUTO) 9.7 % (3.0-13.0); NEUTROPHILS % (AUTO) 48.9 % (40.0-77.0); PLATELET COUNT (AUTO) 221 K/uL (130-400); RED BLOOD CELL COUNT(AUTO) 4.07 MIL/uL (4.50-6.20); RED CELL DISTRIBUTION WIDTH 11.7 % (11.0-15.5); WHITE BLOOD COUNT (AUTO) 5.5 K/uL (4.8-10.8)
[2021-04-22 05:19] LABS: CREATININE 0.7 mg/dL (0.5-1.5)
[2021-04-22 05:24] LABS: POTASSIUM 2.9 mmol/L (3.5-5.1)
[2021-04-22] MEDS: INSULIN HUMULIN R 100 UNIT/ML 3ML SQ SCH ×4 (05:54→21:26)
[2021-04-22 08:00] VITALS: BP 129/86
[2021-04-22] MEDS: OXCARBAZEPINE PO SCH (09:00)
[2021-04-22] MEDS: PANTOPRAZOLE 40 MG/VIAL IVP SCH (09:21)
[2021-04-22] MEDS: LEVOFLOXACIN 500 MG/D5W 100 ML 100 ML IV SCH (09:21)
[2021-04-22] MEDS: KCL 20 MEQ ERTAB PO PRN ×2 (09:22→13:06)
[2021-04-22 12:04] VITALS: BP 128/85
[2021-04-22] MEDS ORDERED: INSULIN GLARGINE 100 UNITS/ML 10 ML VIAL SQ SCH (13:30)
[2021-04-22] MEDS: OXCARBAZEPINE 300 MG TAB PO SCH (14:08)
[2021-04-22 15:49] VITALS: BP 113/75
[2021-04-22 20:00] VITALS: BP 117/77
[2021-04-22] MEDS ORDERED: HOME MEDICATION 1 EACH PO SCH (21:00)
[2021-04-22] MEDS: INSULIN GLARGINE 100 UNITS/ML 10 ML VIAL SQ SCH (21:26)
[2021-04-23] VITALS: BP 123/76
[2021-04-23] MEDS: VANCOMYCIN 1.5GM/NS 250ML IV SCH ×6 (02:56→18:01)
[2021-04-23 04:00] VITALS: BP 114/75
[2021-04-23 04:52] LABS: BASOPHILS % (AUTO) 0.2 % (0.0-5.0); EOSINOPHILS % (AUTO) 1.5 % (0.0-8.0); HEMATOCRIT 34.7 % (42-54); LYMPHOCYTES % (AUTO) 40.5 % (21.0-51.0); MEAN CORPUSCULAR HEMOGLOBIN 29.1 pg (27.0-33.0); MEAN CORPUSCULAR HGB CONC 34.6 g/dL (32.0-36.0); PLATELET COUNT (AUTO) 228 K/uL (130-400); RED BLOOD CELL COUNT(AUTO) 4.13 MIL/uL (4.50-6.20); RED CELL DISTRIBUTION WIDTH 11.9 % (11.0-15.5)
[2021-04-23 05:07] LABS: CREATININE 0.7 mg/dL (0.5-1.5)
[2021-04-23 05:24] LABS: POTASSIUM 2.9 mmol/L (3.5-5.1)
[2021-04-23] MEDS ORDERED: LIDOCAINE HCL-MPF 1% 2ML VIAL ONE (05:28)
[2021-04-23] MEDS: ZOSYN 3.375GM+NS 50ML 50 ML IV SCH ×3 (05:29→20:16)
[2021-04-23] MEDS: INSULIN HUMULIN R 100 UNIT/ML 3ML SQ SCH ×4 (06:00→20:23)
[2021-04-23 08:00] VITALS: BP 120/71
[2021-04-23] MEDS: PANTOPRAZOLE 40 MG/VIAL IVP SCH (09:42)
[2021-04-23] MEDS: OXCARBAZEPINE 300 MG TAB PO SCH (09:42)
[2021-04-23] MEDS: LEVOFLOXACIN 500 MG/D5W 100 ML 100 ML IV SCH (09:43)
[2021-04-23 11:46] VITALS: BP 128/86
[2021-04-23 16:00] VITALS: BP 118/77
[2021-04-23] MEDS: KCL 20 MEQ ERTAB PO PRN ×4 (17:58→23:50)
[2021-04-23 20:00] VITALS: BP 134/83
[2021-04-23] MEDS: INSULIN GLARGINE 100 UNITS/ML 10 ML VIAL SQ SCH (20:22)
[2021-04-24] VITALS (7 sets, daily range): BP systolic 112–137; BP diastolic 49–87
[2021-04-24] MEDS: ONDANSETRON 4MG INJ IVP PRN ×2 (00:58→12:40)
[2021-04-24] MEDS: VANCOMYCIN 1.5GM/NS 250ML IV SCH ×4 (02:11→10:00)
[2021-04-24] MEDS: ZOSYN 3.375GM+NS 50ML 50 ML IV SCH (04:47)
[2021-04-24 05:04] LABS: HEMATOCRIT 36.4 % (42-54); MEAN CORPUSCULAR HEMOGLOBIN 29.4 pg (27.0-33.0); MEAN CORPUSCULAR HGB CONC 33.8 g/dL (32.0-36.0); MEAN CORPUSCULAR VOLUME 86.9 fL (79-99); RED BLOOD CELL COUNT(AUTO) 4.19 MIL/uL (4.50-6.20); RED CELL DISTRIBUTION WIDTH 11.9 % (11.0-15.5); WHITE BLOOD COUNT (AUTO) 7.3 K/uL (4.8-10.8)
[2021-04-24 05:53] LABS: CREATININE 2.6 mg/dL (0.5-1.5); POTASSIUM 3.9 mmol/L (3.5-5.1)
[2021-04-24] MEDS: INSULIN HUMULIN R 100 UNIT/ML 3ML SQ SCH ×4 (05:54→20:01)
[2021-04-24] MEDS: PANTOPRAZOLE 40 MG/VIAL IVP SCH (09:26)
[2021-04-24] MEDS: OXCARBAZEPINE 300 MG TAB PO SCH (09:26)
[2021-04-24] MEDS: LEVOFLOXACIN 500 MG/D5W 100 ML 100 ML IV SCH (09:26)
[2021-04-24] MEDS: INSULIN GLARGINE 100 UNITS/ML 10 ML VIAL SQ SCH (20:02)
[2021-04-25] MEDS: ONDANSETRON 4MG INJ IVP PRN ×2 (02:53→12:03)
[2021-04-25 04:00] VITALS: BP 127/83
[2021-04-25 05:11] LABS: BASOPHILS % (AUTO) 0.3 % (0.0-5.0); EOSINOPHILS % (AUTO) 0.3 % (0.0-8.0); HEMATOCRIT 36.4 % (42-54); LYMPHOCYTES % (AUTO) 14.7 % (21.0-51.0); MEAN CORPUSCULAR HEMOGLOBIN 29.2 pg (27.0-33.0); MEAN CORPUSCULAR HGB CONC 34.1 g/dL (32.0-36.0); MEAN CORPUSCULAR VOLUME 85.6 fL (79-99); MONOCYTES % (AUTO) 16.4 % (3.0-13.0); NEUTROPHILS % (AUTO) 67.8 % (40.0-77.0); PLATELET COUNT (AUTO) 185 K/uL (130-400); RED BLOOD CELL COUNT(AUTO) 4.25 MIL/uL (4.50-6.20); RED CELL DISTRIBUTION WIDTH 11.8 % (11.0-15.5); WHITE BLOOD COUNT (AUTO) 7.9 K/uL (4.8-10.8)
[2021-04-25 05:23] LABS: CREATININE 3.7 mg/dL (0.5-1.5); POTASSIUM 3.6 mmol/L (3.5-5.1)
[2021-04-25] MEDS: INSULIN HUMULIN R 100 UNIT/ML 3ML SQ SCH ×4 (05:31→20:36)
[2021-04-25 08:00] VITALS: BP 121/78
[2021-04-25] MEDS: PANTOPRAZOLE 40 MG/VIAL IVP SCH (09:28)
[2021-04-25] MEDS: OXCARBAZEPINE 300 MG TAB PO SCH (09:28)
[2021-04-25] MEDS: LEVOFLOXACIN 500 MG/D5W 100 ML 100 ML IV SCH (09:28)
[2021-04-25 11:51] VITALS: BP 115/78
[2021-04-25 16:00] VITALS: BP 135/92
[2021-04-25] MEDS: KCL 20 MEQ ERTAB PO PRN ×2 (18:39→20:38)
[2021-04-25 20:00] VITALS: BP 142/86
[2021-04-25] MEDS: INSULIN GLARGINE 100 UNITS/ML 10 ML VIAL SQ SCH (20:35)
[2021-04-26] VITALS (12 sets, daily range): BP systolic 101–145; BP diastolic 45–97
[2021-04-26 05:06] LABS: MEAN CORPUSCULAR HEMOGLOBIN 29.3 pg (27.0-33.0); MEAN CORPUSCULAR HGB CONC 33.8 g/dL (32.0-36.0); MEAN CORPUSCULAR VOLUME 86.9 fL (79-99); PLATELET COUNT (AUTO) 159 K/uL (130-400); RED BLOOD CELL COUNT(AUTO) 4.26 MIL/uL (4.50-6.20); RED CELL DISTRIBUTION WIDTH 11.7 % (11.0-15.5); WHITE BLOOD COUNT (AUTO) 8.3 K/uL (4.8-10.8)
[2021-04-26 05:23] LABS: PHOSPHORUS 4.2 mg/dL (2.5-4.9)
[2021-04-26] MEDS: INSULIN HUMULIN R 100 UNIT/ML 3ML SQ SCH ×4 (05:40→20:31)
[2021-04-26 06:01] LABS: BASOPHILS % (MANUAL) 1 % (0-2); LYMPHOCYTES % (MANUAL) 21 % (22-44); MAN.DIFF COMMENT-IMPRESSION MANUAL DIFFERENTIAL; MONOCYTES % (MANUAL) 7 % (2-9); SEGMENTED NEUTROPHILS % 71 % (40-70)
[2021-04-26 06:03] LABS: PLATELET MORPHOLOGY COMMENT ADEQUATE
[2021-04-26] MEDS: PANTOPRAZOLE 40 MG/VIAL IVP SCH (09:58)
[2021-04-26] MEDS: OXCARBAZEPINE 300 MG TAB PO SCH (09:58)
[2021-04-26] MEDS ORDERED: AMOX/CLAV 875/125MG TAB PO ONE ×2 (13:30→17:00)
[2021-04-26] MEDS: INSULIN GLARGINE 100 UNITS/ML 10 ML VIAL SQ SCH (20:31)
[2021-04-27] VITALS: BP 115/76
[2021-04-27] MEDS: ACETAMINOPHEN 325 MG TAB PO PRN ×3 (00:08→23:44)
[2021-04-27 04:24] LABS: HEMATOCRIT 35.3 % (42-54); MEAN CORPUSCULAR HEMOGLOBIN 29.2 pg (27.0-33.0); MEAN CORPUSCULAR HGB CONC 33.7 g/dL (32.0-36.0); MEAN CORPUSCULAR VOLUME 86.5 fL (79-99); RED BLOOD CELL COUNT(AUTO) 4.08 MIL/uL (4.50-6.20); RED CELL DISTRIBUTION WIDTH 11.5 % (11.0-15.5); WHITE BLOOD COUNT (AUTO) 7.4 K/uL (4.8-10.8)
[2021-04-27 04:50] LABS: ALBUMIN 2.5 g/dL (3.5-5.0); BILIRUBIN,TOTAL 0.4 mg/dL (0.2-1.0); POTASSIUM 3.7 mmol/L (3.5-5.1)
[2021-04-27 04:52] VITALS: BP 120/73
[2021-04-27] MEDS: INSULIN HUMULIN R 100 UNIT/ML 3ML SQ SCH ×4 (05:24→21:17)
[2021-04-27 08:19] VITALS: BP 119/83
[2021-04-27] MEDS: OXCARBAZEPINE 300 MG TAB PO SCH (08:49)
[2021-04-27] MEDS: PANTOPRAZOLE 40 MG/VIAL IVP SCH (08:49)
[2021-04-27] MEDS ORDERED: LEVOFLOXACIN 500 MG/D5W 100 ML 100 ML IV SCH (09:00)
[2021-04-27 11:35] VITALS: BP 110/61
[2021-04-27] MEDS: AMOX/CLAV 875/125MG TAB PO SCH (12:53)
[2021-04-27 16:28] VITALS: BP 128/84
[2021-04-27 20:00] VITALS: BP 122/85
[2021-04-27] MEDS: INSULIN GLARGINE 100 UNITS/ML 10 ML VIAL SQ SCH (21:17)
[2021-04-28] VITALS (8 sets, daily range): BP systolic 106–125; BP diastolic 61–81
[2021-04-28 04:41] LABS: MEAN CORPUSCULAR HEMOGLOBIN 28.5 pg (27.0-33.0); MEAN CORPUSCULAR HGB CONC 33.1 g/dL (32.0-36.0); RED BLOOD CELL COUNT(AUTO) 4.07 MIL/uL (4.50-6.20); RED CELL DISTRIBUTION WIDTH 11.4 % (11.0-15.5); WHITE BLOOD COUNT (AUTO) 6.8 K/uL (4.8-10.8)
[2021-04-28 04:51] LABS: ALBUMIN 2.5 g/dL (3.5-5.0); BILIRUBIN,TOTAL 0.4 mg/dL (0.2-1.0); CREATININE 3.7 mg/dL (0.5-1.5); MAGNESIUM 2.3 mg/dL (1.80-2.40); PHOSPHORUS 5.1 mg/dL (2.5-4.9); POTASSIUM 3.7 mmol/L (3.5-5.1); TOTAL PROTEIN, SERUM 7.1 g/dL (6.0-8.3)
[2021-04-28] MEDS: INSULIN HUMULIN R 100 UNIT/ML 3ML SQ SCH ×4 (06:54→20:40)
[2021-04-28] MEDS: PANTOPRAZOLE 40 MG/VIAL IVP SCH (09:03)
[2021-04-28] MEDS: OXCARBAZEPINE 300 MG TAB PO SCH (09:03)
[2021-04-28] MEDS: AMOX/CLAV 875/125MG TAB PO SCH (09:03)
[2021-04-28] MEDS: ACETAMINOPHEN 325 MG TAB PO PRN (20:38)
[2021-04-28] MEDS: INSULIN GLARGINE 100 UNITS/ML 10 ML VIAL SQ SCH (20:39)
[2021-04-29 03:48] VITALS: BP 112/76
[2021-04-29 04:47] LABS: HEMATOCRIT 35.3 % (42-54); MEAN CORPUSCULAR HEMOGLOBIN 28.8 pg (27.0-33.0); MEAN CORPUSCULAR VOLUME 84.7 fL (79-99); PLATELET COUNT (AUTO) 185 K/uL (130-400); RED BLOOD CELL COUNT(AUTO) 4.17 MIL/uL (4.50-6.20); RED CELL DISTRIBUTION WIDTH 11.5 % (11.0-15.5); WHITE BLOOD COUNT (AUTO) 7.5 K/uL (4.8-10.8)
[2021-04-29 05:20] LABS: CREATININE 3.5 mg/dL (0.5-1.5); POTASSIUM 3.7 mmol/L (3.5-5.1)
[2021-04-29] MEDS: INSULIN HUMULIN R 100 UNIT/ML 3ML SQ SCH ×4 (06:08→20:55)
[2021-04-29 06:16] LABS: BAND NEUTROPHILS % (MANUAL) 9 % (0-2); EOSINOPHILS % (MANUAL) 2 % (1-6); LYMPHOCYTES % (MANUAL) 15 % (22-44); MAN.DIFF COMMENT-IMPRESSION MANUAL DIFFERENTIAL; MONOCYTES % (MANUAL) 12 % (2-9); PLATELET MORPHOLOGY COMMENT ADEQUATE; SEGMENTED NEUTROPHILS % 62 % (40-70)
[2021-04-29 07:05] VITALS: BP 106/73
[2021-04-29] MEDS: OXCARBAZEPINE 300 MG TAB PO SCH (08:34)
[2021-04-29] MEDS: PANTOPRAZOLE 40 MG/VIAL IVP SCH (08:34)
[2021-04-29] MEDS: AMOX/CLAV 875/125MG TAB PO SCH (08:34)
[2021-04-29 11:05] VITALS: BP 120/83
[2021-04-29 15:05] VITALS: BP 121/77
[2021-04-29 20:00] VITALS: BP 128/77
[2021-04-29] MEDS: ACETAMINOPHEN 325 MG TAB PO PRN (20:49)
[2021-04-29] MEDS: INSULIN GLARGINE 100 UNITS/ML 10 ML VIAL SQ SCH (20:53)
[2021-04-30] VITALS: BP 124/71
[2021-04-30 04:08] VITALS: BP 122/74
[2021-04-30 04:30] LABS: HEMATOCRIT 35.9 % (42-54); MEAN CORPUSCULAR HEMOGLOBIN 28.4 pg (27.0-33.0); MEAN CORPUSCULAR HGB CONC 33.4 g/dL (32.0-36.0); MEAN CORPUSCULAR VOLUME 85.1 fL (79-99); PLATELET COUNT (AUTO) 217 K/uL (130-400); RED BLOOD CELL COUNT(AUTO) 4.22 MIL/uL (4.50-6.20); RED CELL DISTRIBUTION WIDTH 11.4 % (11.0-15.5); WHITE BLOOD COUNT (AUTO) 7.1 K/uL (4.8-10.8)
[2021-04-30 04:34] LABS: CREATININE 3.8 mg/dL (0.5-1.5); POTASSIUM 3.8 mmol/L (3.5-5.1)
[2021-04-30 05:33] LABS: BAND NEUTROPHILS % (MANUAL) 12 % (0-2); EOSINOPHILS % (MANUAL) 1 % (1-6); LYMPHOCYTES % (MANUAL) 15 % (22-44); MAN.DIFF COMMENT-IMPRESSION MANUAL DIFFERENTIAL; MONOCYTES % (MANUAL) 11 % (2-9); PLATELET MORPHOLOGY COMMENT ADEQUATE; REACTIVE LYMPHOCYTES 1 % (0-0); SEGMENTED NEUTROPHILS % 60 % (40-70)
[2021-04-30] MEDS: INSULIN HUMULIN R 100 UNIT/ML 3ML SQ SCH ×4 (06:13→21:00)
[2021-04-30 08:01] VITALS: BP 108/73
[2021-04-30] MEDS: AMOX/CLAV 875/125MG TAB PO SCH (08:54)
[2021-04-30] MEDS: PANTOPRAZOLE 40 MG/VIAL IVP SCH (08:54)
[2021-04-30] MEDS: OXCARBAZEPINE 300 MG TAB PO SCH (08:54)
[2021-04-30 12:00] VITALS: BP 120/78
[2021-04-30 16:00] VITALS: BP 139/82
[2021-04-30] MEDS: ACETAMINOPHEN 325 MG TAB PO PRN (18:32)
[2021-04-30 20:00] VITALS: BP 120/66
[2021-04-30] MEDS: INSULIN GLARGINE 100 UNITS/ML 10 ML VIAL SQ SCH (23:40)
[2021-05-01 00:35] VITALS: BP 136/85
[2021-05-01] MEDS: ACETAMINOPHEN 325 MG TAB PO PRN (01:12)
[2021-05-01 01:37] LABS: APPEARANCE,URINE Cloudy (CLEAR); BILIRUBIN,URINE Negative (NEGATIVE); COLOR,URINE Yellow (YELLOW); GLUCOSE, URINE (UA) TRACE mg/dL (NEGATIVE); KETONES,URINE Trace mg/dL (NEGATIVE); LEUKOCYTE ESTERASE ,URINE Negative (NEGATIVE); NITRATE,URINE Negative (NEGATIVE); OCCULT BLOOD,URINE Small (NEGATIVE); PH,URINE 5.5 (5.0-8.0); PROTEIN,URINE POS 2+ mg/dL (NEGATIVE); UROBILINOGEN,URINE 0.2 mg/dL (0.2-1.0)
[2021-05-01 01:57] LABS: BACTERIA,URINE Few /HPF (None Seen); WBC,URINE 0-1 /HPF (0-1)
[2021-05-01 04:43] VITALS: BP 122/70
[2021-05-01 05:26] LABS: BASOPHILS % (AUTO) 0.7 % (0.0-5.0); EOSINOPHILS % (AUTO) 1.7 % (0.0-8.0); LYMPHOCYTES % (AUTO) 17.4 % (21.0-51.0); MEAN CORPUSCULAR HEMOGLOBIN 28.5 pg (27.0-33.0); MEAN CORPUSCULAR HGB CONC 33.9 g/dL (32.0-36.0); MONOCYTES % (AUTO) 11.3 % (3.0-13.0); NEUTROPHILS % (AUTO) 68.3 % (40.0-77.0); PLATELET COUNT (AUTO) 235 K/uL (130-400); RED BLOOD CELL COUNT(AUTO) 3.93 MIL/uL (4.50-6.20); RED CELL DISTRIBUTION WIDTH 11.1 % (11.0-15.5); WHITE BLOOD COUNT (AUTO) 7.1 K/uL (4.8-10.8)
[2021-05-01 05:59] LABS: ALBUMIN 2.4 g/dL (3.5-5.0); BILIRUBIN,TOTAL 0.4 mg/dL (0.2-1.0); TOTAL PROTEIN, SERUM 7.2 g/dL (6.0-8.3)
[2021-05-01 08:00] VITALS: BP 128/73
[2021-05-01] MEDS: AMOX/CLAV 875/125MG TAB PO SCH (09:07)
[2021-05-01] MEDS: OXCARBAZEPINE 300 MG TAB PO SCH (09:07)
[2021-05-01] MEDS: PANTOPRAZOLE 40 MG TAB DR PO SCH (09:07)
[2021-05-01 12:03] VITALS: BP 127/86
[2021-05-01] MEDS: INSULIN HUMULIN R 100 UNIT/ML 3ML SQ SCH ×3 (12:21→20:52)
[2021-05-01 16:00] VITALS: BP 133/81
[2021-05-01 20:00] VITALS: BP 116/80
[2021-05-01] MEDS: INSULIN GLARGINE 100 UNITS/ML 10 ML VIAL SQ SCH (20:52)
[2021-05-02 00:24] VITALS: BP 128/71
[2021-05-02 04:00] VITALS: BP 108/64
[2021-05-02 05:45] LABS: HEMATOCRIT 30.4 % (42-54); MEAN CORPUSCULAR HEMOGLOBIN 28.5 pg (27.0-33.0); MEAN CORPUSCULAR HGB CONC 34.2 g/dL (32.0-36.0); MEAN CORPUSCULAR VOLUME 83.3 fL (79-99); PLATELET COUNT (AUTO) 273 K/uL (130-400); RED BLOOD CELL COUNT(AUTO) 3.65 MIL/uL (4.50-6.20); RED CELL DISTRIBUTION WIDTH 11.3 % (11.0-15.5); WHITE BLOOD COUNT (AUTO) 5.7 K/uL (4.8-10.8)
[2021-05-02] MEDS: PANTOPRAZOLE 40 MG TAB DR PO SCH (05:55)
[2021-05-02] MEDS: INSULIN HUMULIN R 100 UNIT/ML 3ML SQ SCH ×4 (05:57→21:11)
[2021-05-02 06:05] LABS: CREATININE 3.9 mg/dL (0.5-1.5); POTASSIUM 3.7 mmol/L (3.5-5.1)
[2021-05-02 06:30] LABS: BAND NEUTROPHILS % (MANUAL) 12 % (0-2); BASOPHILS % (MANUAL) 4 % (0-2); EOSINOPHILS % (MANUAL) 2 % (1-6); LYMPHOCYTES % (MANUAL) 22 % (22-44); MONOCYTES % (MANUAL) 4 % (2-9); SEGMENTED NEUTROPHILS % 56 % (40-70)
[2021-05-02 06:31] LABS: MAN.DIFF COMMENT-IMPRESSION MANUAL DIFFERENTIAL; PLATELET MORPHOLOGY COMMENT ADEQUATE
[2021-05-02 08:00] VITALS: BP 114/64
[2021-05-02] MEDS: AMOX/CLAV 875/125MG TAB PO SCH (08:24)
[2021-05-02] MEDS: OXCARBAZEPINE 300 MG TAB PO SCH (08:24)
[2021-05-02 11:40] VITALS: BP 117/59
[2021-05-02 16:00] VITALS: BP 122/72
[2021-05-02 19:57] VITALS: BP 126/79
[2021-05-02] MEDS: INSULIN GLARGINE 100 UNITS/ML 10 ML VIAL SQ SCH (21:11)
[2021-05-03] VITALS: BP 128/77
[2021-05-03 03:33] VITALS: BP 99/61
[2021-05-03 04:31] LABS: HEMATOCRIT 33.3 % (42-54); MEAN CORPUSCULAR HEMOGLOBIN 28.7 pg (27.0-33.0); MEAN CORPUSCULAR HGB CONC 33.3 g/dL (32.0-36.0); PLATELET COUNT (AUTO) 301 K/uL (130-400); RED BLOOD CELL COUNT(AUTO) 3.87 MIL/uL (4.50-6.20); RED CELL DISTRIBUTION WIDTH 11.4 % (11.0-15.5); WHITE BLOOD COUNT (AUTO) 5.7 K/uL (4.8-10.8)
[2021-05-03 04:47] LABS: ALBUMIN 2.4 g/dL (3.5-5.0); BILIRUBIN,TOTAL 0.3 mg/dL (0.2-1.0); CREATININE 3.5 mg/dL (0.5-1.5); POTASSIUM 4.1 mmol/L (3.5-5.1); TOTAL PROTEIN, SERUM 7.2 g/dL (6.0-8.3)
[2021-05-03 05:01] LABS: BAND NEUTROPHILS % (MANUAL) 9 % (0-2); BASOPHILS % (MANUAL) 2 % (0-2); EOSINOPHILS % (MANUAL) 1 % (1-6); LYMPHOCYTES % (MANUAL) 22 % (22-44); MAN.DIFF COMMENT-IMPRESSION MANUAL DIFFERENTIAL; MONOCYTES % (MANUAL) 8 % (2-9); SEGMENTED NEUTROPHILS % 58 % (40-70)
[2021-05-03 05:02] LABS: PLATELET MORPHOLOGY COMMENT ADEQUATE
[2021-05-03] MEDS: PANTOPRAZOLE 40 MG TAB DR PO SCH (05:48)
[2021-05-03] MEDS: INSULIN HUMULIN R 100 UNIT/ML 3ML SQ SCH ×2 (06:28→11:08)
[2021-05-03 08:00] VITALS: BP 109/74
[2021-05-03] MEDS: AMOX/CLAV 875/125MG TAB PO SCH (09:20)
[2021-05-03] MEDS: OXCARBAZEPINE 300 MG TAB PO SCH (09:20)
[2021-05-03 12:00] VITALS: BP 116/75
[2021-05-03] MEDS ORDERED: AMOX1TAB16 PO (13:27)
[2021-05-03 16:00] VITALS: BP 133/85
== END 2021-05-03 17:35 | disposition home or self-care (01) | DRG 871 ==
LOC: EDH 11:03 → EDHIP 14:30 → 2DH 04-19 22:44 → 3CH 04-21 00:31
PROVIDERS: ADMIT Internal Medicine Nephrology; ATTEND Internal Medicine Nephrology
PROC: 0J970ZZ Drainage of Back Subcutaneous Tissue and Fascia, Open Approach (ICD-10-PCS; principal; 2021-04-22)
DX: A41.9 Sepsis, unspecified organism (principal); E10.10 Type 1 diabetes mellitus with ketoacidosis without coma; L02.212 Cutaneous abscess of back [any part, except buttock and flank]; N17.9 Acute kidney failure, unspecified; L03.312 Cellulitis of back [any part except buttock and flank]; E87.6 Hypokalemia; E10.649 Type 1 diabetes mellitus with hypoglycemia without coma; I10 Essential (primary) hypertension; E10.21 Type 1 diabetes mellitus with diabetic nephropathy; E87.8 Other disorders of electrolyte and fluid balance, not elsewhere classified; D64.9 Anemia, unspecified; Z86.16 Personal history of COVID-19; Z91.19 Patient's noncompliance with other medical treatment and regimen; Z87.442 Personal history of urinary calculi; Z79.4 Long term (current) use of insulin; Z88.8 Allergy status to other drugs, medicaments and biological substances; Z20.822 Contact with and (suspected) exposure to COVID-19
CPT/HCPCS: 36415; 36600; 71045; 76770; 80048; 80053; 80202; 81001; 82010; 82550; 82803; 82948; 83036; 83605; 83735; 84100; 84443; 85025; 85027; 87040; 87070; 87076; 87077; 87088; 87186; 87635; C9113; G0378; J1815; J1956; J2405; J2543; J3370; J3475; J3480; J3490; J7030; J7050; J7070

== ENCOUNTER → 2021-06-01 | Outpatient (CLI) | payer OTHER, MEDICARE ==
[~2021-06-01] MED LIST changes: +AMOX1TAB16 PO; +OXCA600T3 PO
== END | disposition home or self-care (01) ==
LOC: WHH 10:56
PROVIDERS: ATTEND Family Medicine
DX: T81.89XD Other complications of procedures, not elsewhere classified, subsequent encounter (principal); S21.102D Unspecified open wound of left front wall of thorax without penetration into thoracic cavity, subsequent encounter; E10.628 Type 1 diabetes mellitus with other skin complications; E10.40 Type 1 diabetes mellitus with diabetic neuropathy, unspecified; E10.21 Type 1 diabetes mellitus with diabetic nephropathy; E10.22 Type 1 diabetes mellitus with diabetic chronic kidney disease; I12.9 Hypertensive chronic kidney disease with stage 1 through stage 4 chronic kidney disease, or unspecified chronic kidney disease; N18.9 Chronic kidney disease, unspecified; Z79.4 Long term (current) use of insulin; Z86.16 Personal history of COVID-19; Z87.442 Personal history of urinary calculi; X58.XXXD Exposure to other specified factors, subsequent encounter; Y83.8 Other surgical procedures as the cause of abnormal reaction of the patient, or of later complication, without mention of misadventure at the time of the procedure
CPT/HCPCS: G0463